=== PATIENT | female | born 1985 | race Caucasian/White ===

== ENCOUNTER 2018-11-06 05:47 | Inpatient (IN) | payer BC ==
--- NOTE | 2018-11-05 15:22 | PREOPHP ---
Date of Admission: 11/13/2018 History Of Present Illness: Ms. Harley is a 33-year-old, , female, 3, para 2-0-0-2, now at what will be 39 weeks gestation. She is admitted for elective induction of labor sec ondary to term with favorable cervix and no symptoms of HSV infection. She denies recent c ough, cold, fever, chills or UTI symptoms. Infant has been active. Past Medical History: Please see record. Family History: Please see record. Review of Systems: She reports no recent cough, cold, fever, or chills. No breast knots or lumps. The baby has been ac tive. She denies any vaginal bleeding or spotting. She denies any HSV symptoms. She denies any bow el problems. Physical Examination: General: A short-statured female in no apparent distress. Neck: Supple without adenopathy or thyromegaly. Lungs: Clear. Cardiac: Regular rate and rhythm without murmurs. Breasts: Not examined. Abdomen: Estimated weight is 7+ pounds. Pelvic: Cervix noted to be approximately 3 cm dilated, 2+ to 3 cm, vertex, at -1 station. Extremities: Trace lower extremity edema. Impression: Term , Rh negative blood type. History of herpes simplex virus infection, now on Valtrex. Plan: The patient will be induced on Thursday. She has signed a permit in my presence. KATHY/MADY Voice ID: [id number]
[2018-11-06] MEDS ORDERED: PROMETHAZINE 25 MG/ML VIAL IV PRN (05:50)
[2018-11-06] MEDS ORDERED: BUTORPHANOL 1 MG/ML INJ IV PRN (05:50)
[2018-11-06] MEDS ORDERED: Ringers Lactate 1,000 ML IV PRN (05:50)
[2018-11-06] MEDS ORDERED: OXYTOCIN/LR 20 UNIT/1,000 ML BAG IV SCH ×2 (06:00→12:00)
[2018-11-06] MEDS ORDERED: Ringers Lactate 1,000 ML IV SCH (06:00)
[2018-11-06] MEDS ORDERED: OXYTOCIN/LR 20 UNIT/1,000 ML BAG IV ONE (06:17)
[2018-11-06] MEDS ORDERED: Ringers Lactate 1,000 ML IV ONE (06:17)
[2018-11-06 06:18] LABS: Absolute Lymphocytes (CBC) 2.1 K/uL (0.7-4.9); Absolute Monocytes 0.5 K/uL (0.1-1.3); Absolute Neutrophil 6.5 K/uL (1.8-8.0); Basophils % 0.4 % (0-1.3); Eosinophils % 0.8 % (0-4.4); Hematocrit 39.3 % (36.0-45.0); Lymphocytes % 22.8 % (15.3-44.8); MPV 8.6 fL (7.6-11.3); Monocytes % 5.3 % (3.3-12.3)
[2018-11-06 06:29] VITALS: BMI 29.9
[2018-11-06 06:50] LABS: Urine Appearance CLEAR; Urine Bilirubin NEGATIVE (NEG); Urine Blood NEGATIVE (NEG); Urine Color YELLOW; Urine Glucose NEGATIVE (NEG); Urine Protein NEGATIVE (NEG); Urine Urobilinogen 0.2 mg/dL (0.2-1.0)
[2018-11-06 06:53] LABS: RPR Titer ND
[2018-11-06 06:55] LABS: Urine Microscopic Reflex NO UMIC
--- NOTE | 2018-11-06 07:07 | P.PN ---
Date of Service: 11/06/18 Cx 3cm, 70%, vtx, minus one, reactive fht's, FSE applied
[2018-11-06] MEDS ORDERED: METHYLERGONOVINE 0.2MG/ML AMP IM ONE ×2 (08:56→09:02)
[2018-11-06] MEDS ORDERED: BUTORPHANOL 1 MG/ML INJ ONE (10:11)
[2018-11-06] MEDS ORDERED: PROMETHAZINE 25 MG/ML VIAL ONE (10:11)
[2018-11-06] MEDS ORDERED: LIDOCAINE 2% INJ, 20 mL 20 ML ONE (11:04)
[2018-11-06] MEDS ORDERED: CARBOPROST TROME 250 MCG/ML IM PRN (11:30)
[2018-11-06] MEDS ORDERED: ONDANSETRON 4 MG (ODT) TAB PO PRN (11:30)
[2018-11-06] MEDS ORDERED: IBUPROFEN 200 MG TAB PO PRN (11:30)
[2018-11-06] MEDS ORDERED: Oxycodone HCl/Acetaminophen 1 TAB TAB PO PRN (11:30)
[2018-11-06] MEDS ORDERED: METHYLERGONOVINE 0.2 MG TAB PO PRN (11:30)
[2018-11-06] MEDS ORDERED: METHYLERGONOVINE 0.2MG/ML AMP IM PRN (11:30)
--- NOTE | 2018-11-06 11:32 | P.BOP ---
Preoperative diagnosis: 39 week Postoperative diagnosis: same, delivery viable male infant Primary procedure: SCVD Secondary procedure: repair 2 laceration Estimated blood loss: 200 Anesthesia: Local Complications: None Transferred to: Other (272) Condition: Good
[2018-11-06] MEDS ORDERED: SILVER NITRATE 1 APPL TOP ONE (11:33)
[2018-11-06] MEDS ORDERED: Rho(D) IG (HUMAN) 300 MCG SYR IM ONE (20:02)
[2018-11-07] MEDS ORDERED: Ringers Lactate 1,000 ML IV ONE (09:23)
[2018-11-07 12:56] VITALS: BP 118/68; TEMP 97.4
[2018-11-09 04:25] LABS: RPR (Rapid Plasma Reagin) NON-REACT (NON-REACT)
[2018-11-11 03:47] LABS: HBsAG Nonreactive (Nonreactive)
--- NOTE | 2019-01-19 08:38 | OP ---
Surgeon: Howard Motley MD Ms. Harley is a 33-year-old female, 3, para 2-0-0-2, at 39 weeks gestation, admitted for elective induction of labor. She was noted to be approximately a 1 + 2 cm on admission . After rupture of membranes and Pitocin induction of labor, she had a first stage of labor of 4 ede rs and 13 minutes, second stage of labor of 7 minutes. She delivered by spontaneous controlled vagin al delivery over intact perineum a 7 pounds 7 ounce male . After delayed cord clamping, the co rd was clamped, cut, and the placed on mother's upper abdomen. Cord blood was obtained. Plac enta was spontaneously expelled, appeared to be intact. Intrauterine exam revealed no retained place ntal fragments. She delivered with 1 dose of Stadol 1 mg and 12.5 mg IV dose of Phenergan x1. Estim ated total blood loss was less than 200 cc. The patient tolerated all procedures well. KATHY/MADY Voice ID: [id number] Report ID: [id number]
== END 2018-11-07 13:15 | disposition home or self-care (01) | DRG 807 ==
LOC: 2ND-WC 05:47
PROVIDERS: ADMIT Specialist; ATTEND Specialist
PROC: 10E0XZZ Delivery of Products of Conception, External Approach (ICD-10-PCS; principal; 2018-11-06)
PROC: 10907ZC Drainage of Amniotic Fluid, Therapeutic from Products of Conception, Via Natural or Artificial Opening (ICD-10-PCS; 2018-11-06)
PROC: 3E033VJ Introduction of Other Hormone into Peripheral Vein, Percutaneous Approach (ICD-10-PCS; 2018-11-06)
PROC: 3E0234Z Introduction of Serum, Toxoid and Vaccine into Muscle, Percutaneous Approach (ICD-10-PCS; 2018-11-06)
DX: O26.893 Other specified pregnancy related conditions, third trimester (principal); Z37.0 Single live birth; Z67.91 Unspecified blood type, Rh negative; Z3A.39 39 weeks gestation of pregnancy; O98.313 Other infections with a predominantly sexual mode of transmission complicating pregnancy, third trimester; A60.00 Herpesviral infection of urogenital system, unspecified
CPT/HCPCS: 36415; 81003; 85014; 85025; 85461; 86592; 86850; 86901; 87340; J0595; J2210; J2550; J2590; J2790

== ENCOUNTER 2019-08-19 10:06 | Observation (INO) | payer BC ==
[2019-08-19 11:58] LABS: Absolute Lymphocytes (CBC) 1.9 K/uL (0.7-4.9); Basophils % 0.4 % (0-1.3); Hematocrit 41.8 % (36.0-45.0); Lymphocytes % 18.9 % (15.3-44.8); MPV 8.6 fL (7.6-11.3); RBC Red Blood Cell Count 4.81 M/uL (3.86-4.86)
[2019-08-19 12:12] LABS: BUN Blood Urea Nitrogen 15 mg/dL (7-18); Bicarbonate 27 mmol/L (21-32); Glucose Level 91 mg/dL (74-106); Potassium 3.6 mmol/L (3.5-5.1); Sodium Level 140 mmol/L (136-145)
[2019-08-19 12:34] LABS: Urine Blood NEGATIVE (NEG); Urine Glucose NEGATIVE (NEG); Urine Protein NEGATIVE (NEG); Urine Specific Gravity 1.015 (1.005-1.030); Urine pH 5.5 (5.0-7.0)
--- NOTE | 2019-08-19 12:57 | EDPHYS ---
Physician Documentation [facility] Name: Onelia Harley Age: 34 yrs Sex: Female : 1985 Arrival Date: 08/19/2019 Time: 10:08 Bed 26 Private MD: ED Physician Malik Brown HPI: 08/19 11:46 This 34 yrs old Female presents to ER via Ambulatory with complaints of kb Abdominal Pain - r/o appendicitis. 11:46 The patient presents with abdominal pain right lower quadrant. Onset: The kb symptoms/episode began/occurred last night. The symptoms do not radiate. Associated signs and symptoms: Pertinent positives: nausea, Pertinent negatives: anorexia, blood in stools, chest pain, constipation, diarrhea, dysuria, fever, headache, hematuria, palpitations, shortness of breath, vaginal discharge, vomiting, vomiting blood. The symptoms are described as constant. Modifying factors: The symptoms are alleviated by nothing, the symptoms are aggravated by pressure. Severity of pain: At its worst the pain was moderate in the emergency department the pain is unchanged. The patient has not experienced similar symptoms in the past. The patient has been recently seen by a physician: the patient's primary care provider, earlier today, with similar presenting complaints. RLQ pain with nausea that started last night and has progressively gotten wrose. 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 - Social history:: Smoking status: Patient/guardian denies using tobacco. - Ebola Screening: : Patient denies exposure to infectious person Patient denies travel to an Ebola-affected area in the 21 days before illness onset. ROS: 11:45 Constitutional: Negative for fever, chills, and weight loss, ENT: Negative for injury, kb pain, and discharge, Neck: Negative for injury, pain, and swelling, Cardiovascular: Negative for chest pain, palpitations, and edema, Respiratory: Negative for shortness of breath, cough, wheezing, and pleuritic chest pain, Back: Negative for injury and pain, : Negative for injury, bleeding, discharge, and swelling, MS/Extremity: Negative for injury and deformity, Skin: Negative for injury, rash, and discoloration, Neuro: Negative for headache, weakness, numbness, tingling, and seizure. 11:45 Abdomen/GI: Positive for abdominal pain, nausea, Negative for vomiting, diarrhea, constipation. Exam: 11:46 Constitutional: This is a well developed, well nourished patient who is awake, alert, kb and in no acute distress. Head/Face: Normocephalic, atraumatic. ENT: Nares patent. No nasal discharge, no septal abnormalities noted. Tympanic membranes are normal and external auditory canals are clear. Oropharynx with no redness, swelling, or masses, exudates, or evidence of obstruction, uvula midline. Mucous membranes moist. Neck: Trachea midline, no thyromegaly or masses palpated, and no cervical lymphadenopathy. Supple, full range of motion without nuchal rigidity, or vertebral point tenderness. No Meningismus. Chest/axilla: Normal chest wall appearance and motion. Nontender with no deformity. No lesions are appreciated. Cardiovascular: Regular rate and rhythm with a normal S1 and S2. No gallops, murmurs, or rubs. Normal PMI, no JVD. No pulse deficits. Respiratory: Lungs have equal breath sounds bilaterally, clear to auscultation and percussion. No rales, rhonchi or wheezes noted. No increased work of breathing, no retractions or nasal flaring. Back: No spinal tenderness. No costovertebral tenderness. Full range of motion. Skin: Warm, dry with normal turgor. Normal color with no rashes, no lesions, and no evidence of cellulitis. MS/ Extremity: Pulses equal, no cyanosis. Neurovascular intact. Full, normal range of motion. Neuro: Awake and alert, GCS 15, oriented to person, place, time, and situation. Cranial nerves II-XII grossly intact. Motor strength 5/5 in all extremities. Sensory grossly intact. Cerebellar exam normal. Normal gait. 11:46 Abdomen/GI: Inspection: abdomen appears normal, Bowel sounds: normal, in all quadrants, Palpation: soft, in all quadrants, moderate abdominal tenderness, in the right lower quadrant. Vital Signs: 10:38 BP 128 / 81; Pulse 94; Resp 16; Temp 98.4(TE); Pulse Ox 100% on R/A; Weight 57.61 kg; ss Height 4 ft. 10 in. (147.32 cm); Pain 2/10; 12:00 BP 116 / 75; Pulse 92; Resp 18; Pulse Ox 100% on R/A; aj1 13:00 BP 122 / 65; Pulse 88; Resp 18; Pulse Ox 97% ; aj1 14:00 BP 117 / 78; Pulse 90; Resp 20; Pulse Ox 100% ; aj1 15:02 BP 111 / 75; Pulse 82; Resp 16; Temp 98.2; Pulse Ox 100% on R/A; aj1 10:38 Body Mass Index 26.54 (57.61 kg, 147.32 cm) ss MDM: 11:05 Patient medically screened. kb 11:45 Data reviewed: vital signs, nurses notes. Data interpreted: Pulse oximetry: on room air kb is 100 %. Interpretation: normal. 12:49 Counseling: I had a detailed discussion with the patient and/or guardian regarding: the kb historical points, exam findings, and any diagnostic results supporting the discharge/admit diagnosis, lab results, radiology results, the need for further work-up and treatment in the hospital. Physician consultation: Renato Ramos MD was contacted at 12:56, regarding admission, to the medical/surgical unit. patient's condition, and will see patient in ED, shortly. 08/19 11:06 Order name: Basic Metabolic Panel; Complete Time: 12:13 kb 08/19 11:06 Order name: CBC with Diff; Complete Time: 12:06 kb 08/19 11:06 Order name: CT Abd/Pelvis - PO and IV Contrast kb 08/19 12:18 Order name: Urine Dipstick--Ancillary (enter results); Complete Time: 12:36 kb 08/19 12:18 Order name: Urine --Ancillary (enter results); Complete Time: 12:36 kb 08/19 11:06 Order name: IV Saline Lock; Complete Time: 11:43 kb 08/19 11:06 Order name: Labs collected and sent; Complete Time: 11:43 kb 08/19 12:16 Order name: Urine Dipstick-Ancillary (obtain specimen); Complete Time: 13:00 kb Administered Medications: 13:30 Drug: NS 0.9% 1000 ml Route: IV; Rate: 125 ml/hr; Site: right antecubital; aj1 15:12 Follow up: IV Status: Infusion continued upon admission; IV Intake: 200ml aj1 13:30 Drug: Zosyn 3.375 grams Route: IVPB; Infused Over: 60 mins; Site: right antecubital; aj1 14:30 Follow up: IV Status: Completed infusion; IV Intake: 100ml aj Disposition: 08/19/19 12:56 Hospitalization ordered by Renato Ramos for Observation. Preliminary diagnosis is Acute appendicitis. - Bed requested for Telemetry/MedSurg (observation). - Status is Observation. aj1 - Condition is Stable. - Problem is new. - Symptoms are unchanged. UTI on Admission? No Addendum: 08/21/2019 07:52 Co-signature as Attending Physician, Malik Brown MD I agree with the assessment and c tijerina plan of care. Signatures: Dispatcher [employer] EDMD Joanne Benavidez, JOHN-C CONTRACTOR FIELD HAULING-Ckb Kaley Person, RN RN aj1 Malik Brown MD MD [facility] Shauna Loaiza RN RN ss Corrections: (The following items were deleted from the chart) 08/19 15:16 12:56 Hospitalization Ordered by Renato Ramos MD for Observation. Preliminary aj1 diagnosis is Acute appendicitis. Bed requested for Telemetry/MedSurg (observation). Status is Observation. Condition is Stable. Problem is new. Symptoms are unchanged. UTI on Admission? No. kb
--- NOTE | 2019-08-19 12:57 | ER ---
Nurse's Notes [facility] Name: Onelia Harley Age: 34 yrs Sex: Female : 1985 Arrival Date: 08/19/2019 Time: 10:08 Bed 26 [facility] MD: Diagnosis: Acute appendicitis Presentation: 08/19 10:35 Presenting complaint: Patient states: nausea that began last night with RLQ pain. Seen ss by PCP this morning who sent patient to r/o appy. Transition of care: patient was not received from another setting of care. Onset of symptoms was August 18, 2019. Risk Assessment: Do you want to hurt yourself or someone else? Patient reports no desire to harm self or others. Initial Sepsis Screen: Does the patient meet any 2 criteria? No. Patient's initial sepsis screen is negative. Does the patient have a suspected source of infection? No. Patient's initial sepsis screen is negative. Care prior to arrival: None. 10:35 Method Of Arrival: Ambulatory ss 10:35 Acuity: MARKEL 3 ss CAM MAKER: 10:38 LMP 07/25/2019 ss Historical: - Allergies: 10:38 Codeine; ss 10:38 Zithromax; ss 10:38 Aspirin; ss 10:38 Red Dye; ss 10:38 Tape; ss - Home Meds: 10:38 None [Active]; ss - PMHx: 10:38 None; ss - PSHx: 10:38 None; ss - Immunization history:: Adult Immunizations up to date. - Social history:: Smoking status: Patient/guardian denies using tobacco. - Ebola Screening: : Patient denies exposure to infectious person Patient denies travel to an Ebola-affected area in the 21 days before illness onset. Screenin:30 Abuse screen: Denies threats or abuse. Denies injuries from another. Nutritional aj1 screening: No deficits noted. Tuberculosis screening: No symptoms or risk factors identified. 15:16 Fall Risk No fall in past 12 months (0 pts). No secondary diagnosis (0 pts). IV access aj1 (20 points). Ambulatory Aid- None/Bed Rest/Nurse Assist (0 pts). Gait- Normal/Bed Rest/Wheelchair (0 pts) Mental Status- Oriented to own ability (0 pts). Total Resendez Fall Scale indicates No Risk (0-24 pts). Assessment: 11:30 General: Appears in no apparent distress. comfortable, Behavior is calm, cooperative, aj1 appropriate for age. Pain: Complains of pain in right lower quadrant Pain does not radiate. Pain began 1 day ago. Is continuous. Neuro: Level of Consciousness is awake, alert, obeys commands, Oriented to person, place, time, situation. Cardiovascular: Patient's skin is warm and dry. Respiratory: Airway is patent Respiratory effort is even, unlabored, Respiratory pattern is regular, symmetrical. GI: Abdomen is non-distended, Bowel sounds present X 4 quads. Abd is soft X 4 quads Abdomen is tender to palpation in right lower quadrant Reports nausea, Patient currently denies diarrhea, vomiting. : No signs and/or symptoms were reported regarding the genitourinary system. EENT: No signs and/or symptoms were reported regarding the EENT system. Derm: No signs and/or symptoms reported regarding the dermatologic system. Skin is pink, warm \T\ dry. normal. Musculoskeletal: No signs and/or symptoms reported regarding the musculoskeletal system. Circulation, motion, and sensation intact. 11:44 Reassessment: Notified CT that patient finished her contrast at 11:15. aj1 12:30 Reassessment: Patient appears in no apparent distress at this time. No changes from aj1 previously documented assessment. Patient and/or family updated on plan of care and expected duration. Pain level reassessed. Patient is alert, oriented x 3, equal unlabored respirations, skin warm/dry/pink. 13:30 Reassessment: Patient and/or family updated on plan of care and expected duration. Pain aj1 level reassessed. General: Appears in no apparent distress. comfortable, Behavior is calm, cooperative. Neuro: Level of Consciousness is awake, alert, obeys commands, Oriented to person, place, time, situation. Cardiovascular: Patient's skin is warm and dry. Respiratory: Airway is patent Respiratory effort is even, unlabored, Respiratory pattern is regular, symmetrical. GI: Abdomen is non-distended. Derm: No signs and/or symptoms reported regarding the dermatologic system. Skin is pink, warm \T\ dry. normal. Musculoskeletal: Circulation, motion, and sensation intact. 14:30 Reassessment: Patient appears in no apparent distress at this time. No changes from aj1 previously documented assessment. Patient and/or family updated on plan of care and expected duration. Pain level reassessed. Patient is alert, oriented x 3, equal unlabored respirations, skin warm/dry/pink. 14:45 Reassessment: Dr. Ramos at bedside to discuss POC with patient. aj1 14:55 Reassessment: Patient changed into hospital gown in anticipation of surgery. All of the aj1 patient's belongings were given to her . Vital Signs: 10:38 BP 128 / 81; Pulse 94; Resp 16; Temp 98.4(TE); Pulse Ox 100% on R/A; Weight 57.61 kg; ss Height 4 ft. 10 in. (147.32 cm); Pain 2/10; 12:00 BP 116 / 75; Pulse 92; Resp 18; Pulse Ox 100% on R/A; aj1 13:00 BP 122 / 65; Pulse 88; Resp 18; Pulse Ox 97% ; aj1 14:00 BP 117 / 78; Pulse 90; Resp 20; Pulse Ox 100% ; aj1 15:02 BP 111 / 75; Pulse 82; Resp 16; Temp 98.2; Pulse Ox 100% on R/A; aj1 10:38 Body Mass Index 26.54 (57.61 kg, 147.32 cm) ss ED Course: 10:08 Patient arrived in ED. as 10:37 Triage completed. ss 10:38 Arm band placed on right wrist. ss 10:51 Joanne Benavidez FNP-C is PHCP. kb 10:51 Malik Brown MD is Attending Physician. kb 11:17 Kaley Person, RN is Primary Nurse. aj1 11:30 Patient has correct armband on for positive identification. Bed in low position. Call aj1 light in reach. 11:30 No provider procedures requiring assistance completed. aj1 11:44 Inserted saline lock: 20 gauge in right antecubital area, using aseptic technique. aj1 Blood collected. 12:37 CT Abd/Pelvis - PO and IV Contrast In Process Unspecified. EDMS 12:56 Renato Ramos MD is Hospitalizing Provider. kb 15:14 Patient admitted, IV remains in place. aj1 Administered Medications: 13:30 Drug: NS 0.9% 1000 ml Route: IV; Rate: 125 ml/hr; Site: right antecubital; aj1 15:12 Follow up: IV Status: Infusion continued upon admission; IV Intake: 200ml aj1 13:30 Drug: Zosyn 3.375 grams Route: IVPB; Infused Over: 60 mins; Site: right antecubital; aj1 14:30 Follow up: IV Status: Completed infusion; IV Intake: 100ml aj1 Intake: 14:30 IV: 100ml; Total: 100ml. aj1 15:12 IV: 200ml; Total: 300ml. aj1 Outcome: 12:56 Decision to Hospitalize by Provider. kb 15:16 Admitted to OR accompanied by nurse, via wheelchair, with chart. aj1 15:16 Condition: good 15:16 Instructed on the need for admit, Demonstrated understanding of instructions. 15:16 Patient left the ED. aj1 Signatures: Dispatcher [employer] EDJoanne Segundo, DIRECTOR OF CAREER RESOURCES-C DIRECTOR OF CAREER RESOURCES-Kaley Zelaya, RN RN aj1 Tammy Quarles Shelby, RN RN ss
[2019-08-19] MEDS ORDERED: PIPER/TAZO/NS 3.375gm 3.375 GM/100 ML BAG ONE (13:09)
[2019-08-19] MEDS ORDERED: NA CHLORIDE 0.9% 1,000 ML ONE (13:09)
[2019-08-19] MEDS ORDERED: PROPOFOL 200 MG/20 ML VIAL IV ONE (15:06)
[2019-08-19] MEDS ORDERED: FENTANYL CITR 100 MCG/2 ML ONE ×2 (15:06→16:05)
[2019-08-19] MEDS ORDERED: ONDANSETRON 4 MG/2 ML VIAL ONE (15:07)
[2019-08-19] MEDS ORDERED: ROCURONIUM 50 MG/5 ML VIAL IV ONE (15:07)
[2019-08-19] MEDS ORDERED: LIDOCAINE 2% MPF 5 ML VIAL ONE (15:07)
[2019-08-19] MEDS ORDERED: MIDAZOLAM HCL 2 MG/2 ML INJ ONE (15:07)
[2019-08-19] MEDS ORDERED: dexAMETHasone 10 MG/ML VIAL ONE (15:08)
--- NOTE | 2019-08-19 15:33 | P.HP ---
Date of Service: 08/19/19 PC: This 34-year-old female presents emergency room with right lower quadrant abdominal pain for diagnosis and treatment. HPC: Patient had not been feeling well last night. Had nausea all evening. When she woke up this morning noticed that her pain will consider being around her emboli kiss had moved to the right lower quadrant. Came to the emergency room for diagnosis PMH: Chief 3 para 3 vaginal deliveries PSHx: No prior surgeries SOC: Allergic to aspirin and hydrocodone tape SYS REVIEW: No cough, wheeze, shortness of breath. No chest pain or palpitations. Denies any urinary complaints O/E awake alert vital signs are stable, mildly uncomfortable HEENT: Not jaundice Chest: Chest movement equal bilaterally ABD: Tender with mild guarding in the right lower quadrant LOCO: Intact DATA: 10.[address] count [address] scan supports clinical diagnosis of acute appendicitis IMPRESSION: Acute abdomen with appendicitis PLAN: I will take him to the operating room for laparoscopic possible open appendectomy. The risks of this procedure have been discussed. The possibility of bleeding, infection, injury to bowel and blood vessels has been described. The possible need for an open and/or further surgeries and procedures was discussed. She understands and wants us to proceed. Her is here.
[2019-08-19] MEDS ORDERED: KETOROLAC 30 MG/ML INJ ONE (15:37)
[2019-08-19] MEDS ORDERED: GLYCOPYRROLATE 0.2 MG/ML SYR ONE (16:10)
[2019-08-19] MEDS ORDERED: NEOSTIGMINE 1 MG/ML -10 ML VIAL ONE (16:10)
[2019-08-19] MEDS ORDERED: NA CHLORIDE 0.9% 1,000 ML IV SCH (16:18)
--- NOTE | 2019-08-19 16:27 | P.OP ---
Preoperative diagnosis: Acute abdomen Postoperative diagnosis: Acute appendicitis Primary procedure: Laparoscopic appendectomy Anesthesia: General Estimated blood loss: Less than 10 cc Specimen: 1 appendix Operative Technique: The patient was brought to the operating room, placed supine on the table. After the induction of adequate general endotracheal anesthesia, the area of the abdomen was prepped with a DuraPrep solution, and she was draped in the usual aseptic manner. A subumbilical incision was made. This was brought down through the skin and subcutaneous tissue. The Visiport was cavity and created pneumoperitoneum to approximately 12 mm of mercury. Under direct vision a 5 mm trocar was placed in the lower midline and another 5 mm in the right upper quadrant. The patient was then positioned in Trendelenburg and rolled to the left side. We were able to visualize right lower quadrant. . The appendix was then gently dissected from the surrounding structures. The junction of the appendix with the with the cecum was identified. An opening was made in the mesentery of the appendix. The 10 mm trocar was now converted to a 12 with the camera moved to the right upper port with a 5 mm view. The linear Stapler was introduced into the peritoneal cavity. It was placed across the base of the appendix and fired. A vascular reload was then placed into the Stapler. The mesentery of the appendix was then taken down. The appendix having been was placed into an Endo-Catch, brought out through the umbilical port site. Attention was turned back towards the right lower quadrant. The area was gently irrigated with the saline solution. The effluent was aspirated. Attention was turned towards the umbilical trocar. Using the endo-close absorbable sutures were placed to close the defect. The patient was now returned to the neutral position on the OR table. The pneumoperitoneum was collapsed, the umbilical sutures tied, and maría applied to the skin. At the end of the procedure the patient was in stable condition and sent to the recovery room. Needle sponge and instrument count were correct. 1 specimen was sent for histopathology. Sterile dressings had been applied. Complications: None Transferred to: Recovery Room Condition: Good
[2019-08-19] MEDS ORDERED: IBUPROFEN 100 MG/5 ML UCUP PO PRN (16:39)
[2019-08-19] MEDS ORDERED: ONDANSETRON 4 MG/2 ML VIAL IV PRN (16:39)
[2019-08-19] MEDS ORDERED: MORPHINE 4 MG/ML SYR IV PRN (16:39)
[2019-08-19 17:15] VITALS: BMI 25.6
[2019-08-19] MEDS: NA CHLORIDE 0.9% 1,000 ML IV SCH (17:18)
--- NOTE | 2019-08-19 21:58 | RAD REPORT ---
EXAM DESCRIPTION: CT - Abdomen Pelvis W Contrast - 08/19/2019 7:17 pm CLINICAL HISTORY: Abdominal pain. COMPARISON: None. TECHNIQUE: Computed axial tomography of the abdomen and pelvis was obtained. 100 cc Isovue-300 is ad ministered intravenously. Oral contrast was given. All CT scans are performed using dose optimization technique as appropriate and may include automated exposure control or mA/KV adjustment according to patient size. FINDINGS: The liver, spleen, pancreas, adrenals and kidneys appear unremarkable. Mild enlargement of the appendix. No periappendiceal stranding. No abscess. There is no evidence of diverticulitis Small umbilical hernia contains fat IMPRESSION: Early appendicitis
[2019-08-20] MEDS: NA CHLORIDE 0.9% 1,000 ML IV SCH ×2 (00:14→07:56)
[2019-08-20 04:44] VITALS: O2SAT 99
[2019-08-20 15:31] VITALS: BP 119/88; TEMP 98.3
== END 2019-08-20 09:35 | disposition home or self-care (01) ==
LOC: ER 10:06 → ERHOLD 13:39 → 2ND 16:43
PROVIDERS: ADMIT Surgery; ATTEND Surgery
PROC: 0DTJ4ZZ Resection of Appendix, Percutaneous Endoscopic Approach (ICD-10-PCS; principal; 2019-08-19 16:15)
DX: K35.80 Unspecified acute appendicitis (principal); Z88.6 Allergy status to analgesic agent; Z88.3 Allergy status to other anti-infective agents
CPT/HCPCS: 96365; 96361; 85025; 80048; 36415; 81025; 88304; 81003; 74177; 99285; 44970; Q9967; J2704; J2710; J3010 ×2; J2543; J1100; J7030 ×3; J2405 ×2; G0378 ×3; J2250